=== PATIENT | female | born 1975 | race Caucasian/White ===

== ENCOUNTER → 2023-05-26 18:51 | Outpatient (REF) | payer BC, SELFPAY | LOC: WDC 18:51 | PROVIDERS: ATTENDING PHYSICIAN Obstetrics & Gynecology; FAMILY PHYSICIAN Family Medicine | DX: Z12.31 Encounter for screening mammogram for malignant neoplasm of breast (principal) | CPT/HCPCS: 77063; 77067 ==

== ENCOUNTER 2023-09-24 06:48 | Outpatient (RCR) | payer OTHER, BC, SELFPAY | END 2023-09-24 23:59 | disposition home or self-care (01) | LOC: ROT 06:48 | PROVIDERS: ATTENDING PHYSICIAN Nurse Practitioner; FAMILY PHYSICIAN Family Medicine | DX: R20.2 Paresthesia of skin (principal); Z73.6 Limitation of activities due to disability | CPT/HCPCS: 97010; 97140; 97166; 97535 ==

== ENCOUNTER 2023-09-29 10:12 | Outpatient (RCR) | payer OTHER, BC, SELFPAY | END 2023-09-29 23:59 | disposition home or self-care (01) | LOC: ROT 10:12 | PROVIDERS: ATTENDING PHYSICIAN Nurse Practitioner; FAMILY PHYSICIAN Family Medicine | DX: R20.2 Paresthesia of skin (principal); Z73.6 Limitation of activities due to disability; R20.0 Anesthesia of skin; M79.642 Pain in left hand; M79.641 Pain in right hand | CPT/HCPCS: 97140; 97535 ==

== ENCOUNTER 2023-10-02 15:39 | Emergency (ER) | payer BC, SELFPAY ==
[2023-10-02 15:48] VITALS: BP 128/88
[2023-10-02 16:25] VITALS: BP 120/89
[2023-10-02 16:29] VITALS: BMI 27.5
[2023-10-02 16:45] LABS: % Basophils 0.6 % (0-2); % Eosinophils 1.2 % (0-6); % Immature Granulocytes 0.2 % (0-0.5); % Lymphocytes 25.5 % (20.5-51.1); % Monocytes 7.2 % (1.7-9.3); % Neutrophils 65.3 % (42.2-75.2); Absolute Eosinophils 0.1 10^3/uL (0-0.7); Absolute Lymphocytes 1.7 10^3/uL (1.2-3.4); Absolute Monocytes 0.5 10^3/uL (0.1-0.6); Absolute Neutrophils 4.3 10^3/uL (1.4-6.5); Hemoglobin 13.6 g/dL (12.0-16.0); Mean Corpuscular Volume 88.1 fL (81.0-99.0); Mean Platelet Volume 10.2 fL (7.4-10.4); Nucleated Red Blood Cells % 0 %; Platelet Count 217 10^3/uL (130-400); Red Blood Cell Count 4.54 10^6/uL (4.20-5.40); Red Cell Dist. Width 12.6 % (11.5-14.5); White Blood Cell Count 6.5 10^3/uL (4.8-10.8)
[2023-10-02 17:00] VITALS: BP 109/80
[2023-10-02 17:06] LABS: ALT (SGPT) 26 U/L (0-35); AST (SGOT) 23 U/L (14-36); Albumin 4.7 g/dl (3.5-5.0); Alkaline Phosphatase 65 U/L (38-126); Blood Urea Nitrogen 15 mg/dl (7-17); Calcium 10.4 mg/dl (8.4-10.2); Carbon Dioxide 26 mmol/L (22-30); Chloride 107 mmol/L (98-107); Estimated Creatinine Clearance 94 ml/min; Glucose 103 mg/dl (70-99); Potassium 4.3 mmol/L (3.5-5.1); Sodium 141 mmol/L (135-145); Total Bilirubin 0.5 mg/dl (0.2-1.3); Total Protein 7.1 g/dl (6.3-8.2); eGFR > 60.00
[2023-10-02 17:09] LABS: Troponin I < 0.012 ng/ml
--- NOTE | 2023-10-02 17:26 | ED.GENMED ---
History of Present Illness
General
Chief Complaint: Chest Pain
Source: patient
Exam Limitations: none
Time Seen by Provider: 10/02/23 17:19
Travel History
Have you had any contact with someone who has COVID-19?: No
Do you have any symptoms of coronavirus? Fever > 100 degrees, chills, cough, shortness of breath, sore throat, loss of taste or smell, muscle aches, or headache?: No
History of Present Illness
History of Present Illness:
See MDM
Past History
Past History
ED Past Medical History: None
ED Past Surgical History: Orthopedic
Social History
Tobacco: Non-smoker
Alcohol: Occasional
Living: with family
Phy Exam
Physical Exam
Physical Exam:
See MDM
Scores
Heart Score for Chest Pain Patients
STEMI patient?: No
History: Slightly or Non-Suspicious
ECG: Nonspecific Repolarization
Age: </= 45 years
Risk Factors: 1 or 2 Risk Factors
Troponin: </= Normal Limit
Heart Score for Chest Pain Patients: 2
Heart Score Risk: 2.5% MACE over next 6 weeks
Course
Orders/Labs/Results
Orders:
Orders
10/02/23 15:42
Electrocardiogram (*1) Urgent
Reason for Study: Chest Pain
EKG- Treatment ONCE
10/02/23 16:38
Complete Blood Count/With Diff Urgent
Comprehensive Metabolic Panel Urgent
Troponin I Urgent
10/02/23 17:26
CR Chest - 2 Views Urgent
Comment:
Reason For Exam: Left side chest and back pain
Abnormal Lab Results
10/02/23
16:38
Glucose 103 H mg/dl
(70-99)
Calcium 10.4 H mg/dl
(8.4-10.2)
10/02/23 16:38
10/02/23 16:38
Vital Signs
Initial and Last Documented VS:
Initial Vital Signs
Temp Pulse Resp BP Pulse Ox
97.9 F 81 18 128/88 99
10/02/23 15:48 10/02/23 15:48 10/02/23 15:48 10/02/23 15:48 10/02/23 15:48
Last Documented Vital Signs
Temp Pulse Resp BP Pulse Ox
97.9 F 88 29 116/76 98
10/02/23 15:48 10/02/23 18:30 10/02/23 18:30 10/02/23 18:00 10/02/23 18:00
MDM/Problems Addressed
Differential Diagnosis Includes:
HPI and MDM Narrative:
48-year-old female presenting with resolving left-sided chest pain and left back pain. She noticed the symptoms around 130 while she was driving. She initially thought it could be reflux but decided to take 3 Motrin. After 2 hours, symptoms were
not getting better so she was started to get worried since she has a family history of heart disease. On arrival, all symptoms appear to be resolving. Patient states she is feeling much better. Blood work was performed in triage and troponin is
negative. The blood work was performed around the 4-hour judi. Given the negative troponin and the nonischemic EKG, discussed low risk for ACS. Patient agrees acknowledges. Given the mild persistent symptoms, will obtain x-ray. Patient denies
any leg swelling, leg pain or leg redness
Physical exam
General: Well appearing and non-toxic
HEENT: protecting airway
Neck: appears supple
CV: No evidence of cyanosis. Regular rate and rhythm. No murmur
Resp: No accessory muscle use. Lungs clear
Abd: Non-distended
Extremities: No upper extremity deformities
Neuro: alert
Psych: Normal affect
Skin: Intact
Problems Addressed including Acute and Chronic Conditions affecting care:
1. Resolving chest and back pain
Acuity: acute
Prognosis: stable
Details: Discussed likely musculoskeletal. Symptoms improving with NSAIDs. Given the nonexertional symptoms and the normal EKG and normal troponin, doubt ACS. Will obtain chest x-ray
Updates
Chest x-ray clear. Patient feels comfortable going home
Differential Diagnosis (but not limited to): Noncardiac chest pain, pneumothorax, muscle strain
Testing considered: PE but she is neither tachycardic nor hypoxic and she denies any leg pain or swelling
Drug therapy (if applicable): OTC meds, please see d/c instruction regarding Rx drugs
Amount and/or Complexity of Data Reviewed
Clinical info obtained from: Patient
External data reviewed: N/A
Labs I independently reviewed (but not limited to): Troponin normal
Radiology: X-ray independently reviewed: Chest x-ray clear
Pulse Ox: not hypoxic
EKG independently reviewed: Sinus rhythm, normal axis, no STEMI
English Composition Teacher: N/A
Critical Care: N/A
Risk of Complication:
Social Determinants of health: Good social support
Discussed with other providers: N/A
Escalation of Care includes Admit/Obs: After being observed in the Emergency Department, pt stable for discharge.
Occasional wrong word or 'sound a like' substitutions may have occurred due to the inherent limitations of voice recognition software. Read the chart carefully and recognize, using context, where substitutions have occurred.
*Critical Care Note
Total Time (30-74mins, 75-104mins- exclusive of procedures): Not Applicable
ED Attending Note
-
Portions of this chart may have been created with voice recognition software.� Occasional wrong word or��sound alike� substitutions may have occurred due to the inherent limitations of voice recognition software.
Discharge Plan
Departure
Patient Disposition: Home (Routine Discharge)
Date of Disposition: 10/02/23
Time of Disposition: 18:52
Patient with high blood pressure during this ER visit?: No
Discharge Problem:
Chest pain
Instructions: Chest Pain PCP Follow Up
Prescriptions:
No Action
docosahexaenoic acid-epa 1 CAP capsule
1 cap PO DAILY
calcium carbonate-vitamin D3 [Calcium 500 With D] 1 EACH tablet
1 ea PO
multivitamin with folic acid [Tab-A-Den] 1 TABLET tablet
1 tab PO DAILY
cholecalciferol (vitamin D3) [Vitamin D3] 400 UNITS tablet
800 units PO Daily
Referrals:
Derek Swan MD [Family Provider] -
Activity Restrictions/Additional Instructions:
Please return for any worsening symptoms.
You may return at any time if you have further concerns.
Please follow up with your doctor at the first available appointment, preferably this week.
Thank you for choosing [facility].
Interventions
Interventions:
*Risk Screen - Suicide Last Done: 10/02/23 16:26
*General Assessment Last Done: 10/02/23 15:48
*Neglect/Abuse Screening Last Done: 10/02/23 16:26
ED- Fall Risk Assessment Last Done: 10/02/23 16:26
*ED COVID-19 Vaccine History Last Done: 10/02/23 15:48
ED- Cardiac Assessment Last Done: 10/02/23 16:26
Discharge Date and Time
Print Language: CITIZ[place]
[2023-10-02 18:00] VITALS: BP 116/76
== END 2023-10-02 18:58 | disposition home or self-care (01) ==
LOC: EMR 15:39
PROVIDERS: Emergency Medicine; EMERGENCY PHYSICIAN Student in an Organized Health Care Education/Training Program; FAMILY PHYSICIAN Family Medicine
DX: R07.89 Other chest pain (principal)
CPT/HCPCS: 99283; 71046; 80053; 84484; 85025; 93005

== ENCOUNTER → 2023-11-16 06:34 | Outpatient (REF) | payer OTHER, BC, SELFPAY | LOC: EMG 06:34 | PROVIDERS: ATTENDING PHYSICIAN Nurse Practitioner Family; FAMILY PHYSICIAN Physician Assistant Medical | DX: R20.0 Anesthesia of skin (principal) | CPT/HCPCS: 95886; 95911 ==

== ENCOUNTER 2023-11-30 06:23 | Day surgery (SDC) | payer BC, SELFPAY ==
[2023-11-30 08:37] VITALS: BMI 27.5
[2023-11-30 08:41] VITALS: BP 122/82
[2023-11-30] MEDS: TYLENOL 1000 MG PO (08:56)
[2023-11-30] MEDS: NORMOSOL-R 1000 IV (08:56)
[2023-11-30 09:04] VITALS: BMI 27.5
[2023-11-30 10:45] VITALS: BP 131/77
== END 2023-11-30 10:50 | disposition home or self-care (01) ==
LOC: SDS 06:23
PROVIDERS: ATTENDING PHYSICIAN Orthopaedic Surgery
DX: G56.01 Carpal tunnel syndrome, right upper limb (principal)
CPT/HCPCS: 64721

== ENCOUNTER 2023-12-14 07:51 | Day surgery (SDC) | payer OTHER, BC, SELFPAY ==
[2023-12-14 08:37] VITALS: BMI 28.4
[2023-12-14 08:41] VITALS: BP 114/81; BMI 28.4
[2023-12-14] MEDS: TYLENOL 1000 MG PO (09:56)
[2023-12-14 10:29] VITALS: BP 141/85
== END 2023-12-14 10:50 | disposition home or self-care (01) ==
LOC: SDS 07:51
PROVIDERS: ATTENDING PHYSICIAN Orthopaedic Surgery
DX: G56.02 Carpal tunnel syndrome, left upper limb (principal)
CPT/HCPCS: 64721

== ENCOUNTER 2024-01-19 07:30 | Outpatient (RCR) | payer OTHER, BC, SELFPAY | END 2024-01-19 23:59 | disposition home or self-care (01) | LOC: ROT 07:30 | PROVIDERS: ATTENDING PHYSICIAN Physician Assistant; FAMILY PHYSICIAN Physician Assistant Medical | DX: Z73.6 Limitation of activities due to disability (principal); Z98.890 Other specified postprocedural states | CPT/HCPCS: 97010; 97018; 97035; 97110; 97140; 97166; 97535 ==

== ENCOUNTER → 2024-01-25 08:49 | Outpatient (REF) | payer BC, SELFPAY ==
[2024-01-25 09:59] LABS: % Basophils 0.8 % (0-2); % Eosinophils 1.8 % (0-6); % Immature Granulocytes 0.4 % (0-0.5); % Lymphocytes 26.2 % (20.5-51.1); % Monocytes 9.2 % (1.7-9.3); % Neutrophils 61.6 % (42.2-75.2); Absolute Eosinophils 0.1 10^3/uL (0-0.7); Absolute Lymphocytes 1.3 10^3/uL (1.2-3.4); Absolute Monocytes 0.5 10^3/uL (0.1-0.6); Hematocrit 40.5 % (37.0-47.0); Hemoglobin 13.9 g/dL (12.0-16.0); Mean Corp Hgb Conc. 34.3 g/dL (33.0-37.0); Mean Corpuscular Hgb 29.8 pg (27.0-31.0); Mean Corpuscular Volume 86.9 fL (81.0-99.0); Mean Platelet Volume 10.2 fL (7.4-10.4); Nucleated Red Blood Cells % 0 %; Platelet Count 205 10^3/uL (130-400); Red Blood Cell Count 4.66 10^6/uL (4.20-5.40); Red Cell Dist. Width 13.4 % (11.5-14.5); White Blood Cell Count 4.9 10^3/uL (4.8-10.8)
[2024-01-25 10:47] LABS: ALT (SGPT) 64 U/L (0-35); AST (SGOT) 29 U/L (14-36); Albumin 4.5 g/dl (3.5-5.0); Alkaline Phosphatase 62 U/L (38-126); Blood Urea Nitrogen 14 mg/dl (7-17); Calcium 9.9 mg/dl (8.4-10.2); Carbon Dioxide 29 mmol/L (22-30); Chloride 101 mmol/L (98-107); Glucose 89 mg/dl (70-99); HDL Cholesterol 79 mg/dl; LDL Cholesterol, Calculated 139 mg/dl; Potassium 4.7 mmol/L (3.5-5.1); Sodium 140 mmol/L (135-145); Total Bilirubin 0.6 mg/dl (0.2-1.3); Total Cholesterol 241 mg/dl (50-199); Total Protein 6.8 g/dl (6.3-8.2); Triglyceride 119 mg/dl (10-149); Very Low Density Lipoprotein 23 mg/dl (0-30); eGFR > 60.00
[2024-01-25 11:27] LABS: TSH 0.77 uIU/ml (0.47-4.68)
== END ==
LOC: REG 08:49
PROVIDERS: ATTENDING PHYSICIAN Physician Assistant Medical
DX: Z00.00 Encounter for general adult medical examination without abnormal findings (principal); Z68.28 Body mass index [BMI] 28.0-28.9, adult; G60.8 Other hereditary and idiopathic neuropathies; G62.9 Polyneuropathy, unspecified; E55.9 Vitamin D deficiency, unspecified; H91.93 Unspecified hearing loss, bilateral; Z82.49 Family history of ischemic heart disease and other diseases of the circulatory system; Z86.69 Personal history of other diseases of the nervous system and sense organs
CPT/HCPCS: 36415; 80053; 80061; 84443; 85025

== ENCOUNTER → 2024-05-29 18:17 | Outpatient (REF) | payer BC, SELFPAY | LOC: WDC 18:17 | PROVIDERS: ATTENDING PHYSICIAN Obstetrics & Gynecology; FAMILY PHYSICIAN Physician Assistant Medical | DX: Z12.31 Encounter for screening mammogram for malignant neoplasm of breast (principal) | CPT/HCPCS: 77063; 77067 ==

== ENCOUNTER → 2024-06-02 08:20 | Outpatient (REF) | payer BC, SELFPAY | LOC: WDC 08:20 | PROVIDERS: ATTENDING PHYSICIAN Obstetrics & Gynecology; FAMILY PHYSICIAN Physician Assistant Medical | DX: R92.8 Other abnormal and inconclusive findings on diagnostic imaging of breast (principal) | CPT/HCPCS: 76642 ==

== ENCOUNTER → 2025-02-10 07:34 | Outpatient (REF) | payer BC, SELFPAY ==
[2025-02-10 08:33] LABS: Hematocrit 40.7 % (37.0-47.0); Hemoglobin 13.3 g/dL (12.0-16.0); Mean Corp Hgb Conc. 32.7 g/dL (33.0-37.0); Mean Corpuscular Volume 92.7 fL (81.0-99.0); Nucleated Red Blood Cells % 0 %; Platelet Count 212 10^3/uL (130-400); Red Cell Dist. Width 12.9 % (11.5-14.5)
[2025-02-10 08:54] LABS: ALT (SGPT) 28 U/L (0-35); AST (SGOT) 16 U/L (14-36); Albumin 4.3 g/dl (3.5-5.0); Alkaline Phosphatase 64 U/L (38-126); Blood Urea Nitrogen 17 mg/dl (7-17); Calcium 9.4 mg/dl (8.4-10.2); Carbon Dioxide 30 mmol/L (22-30); Chloride 105 mmol/L (98-107); Glucose 90 mg/dl (70-99); HDL Cholesterol 87 mg/dl; LDL Cholesterol, Calculated 90 mg/dl; Potassium 4.3 mmol/L (3.5-5.1); Sodium 138 mmol/L (135-145); Total Protein 6.8 g/dl (6.3-8.2); Very Low Density Lipoprotein 16 mg/dl (0-30); eGFR > 60.00
== END ==
LOC: REG 07:34
PROVIDERS: ATTENDING PHYSICIAN Physician Assistant Medical
DX: Z00.00 Encounter for general adult medical examination without abnormal findings (principal); Z68.28 Body mass index [BMI] 28.0-28.9, adult; G60.8 Other hereditary and idiopathic neuropathies; G62.9 Polyneuropathy, unspecified; E55.9 Vitamin D deficiency, unspecified; H91.93 Unspecified hearing loss, bilateral; Z83.719 Family history of colon polyps, unspecified; Z82.49 Family history of ischemic heart disease and other diseases of the circulatory system; Z86.69 Personal history of other diseases of the nervous system and sense organs
CPT/HCPCS: 36415; 80053; 80061; 84443; 85025